=== PATIENT | male | born 1960 | race Caucasian/White ===

== ENCOUNTER 2020-01-04 00:21 | Observation (INO) | payer OTHER ==
[~2020-01-04] VITALS: Ht 172.7 cm; Wt 117.9 kg
[2020-01-04 00:35] VITALS: BP 145/94
[2020-01-04 00:55] LABS: HEMATOCRIT 42.2 % (42.0-52.0); MPV 6.9 fl. (7.2-11.1); NUCLEATED RBCS 0 /100WBC; RDW-CV 13.5 % (10.5-14.5)
[2020-01-04 00:57] LABS: ABSOLUTE BASOPHILS 0.1 thou/uL (0.0-0.2); ABSOLUTE LYMPHOCYTES 2.1 thou/uL (0.8-5.3); ABSOLUTE MONOCYTES 1.2 thou/uL (0.0-1.2); ABSOLUTE NEUTROPHILS 8.2 thou/uL (1.6-8.1); BASOPHILS 0.5 %; EOSINOPHILS 0.4 %; HEMOGLOBIN 14.4 gm/dL (14.0-18.0); MCH 30.1 pg (26.0-34.0); MCHC 34.2 g/dL (28.0-37.0); MCV 88.1 fL (80.0-100.0); MONOCYTES 10.3 %; PLATELET COUNT* 356 thou/uL (150-400); POLYS 70.8 %; RBC 4.79 mil/uL (4.50-6.00); WBC 11.6 thou/uL (4.0-11.0)
[2020-01-04 01:04] LABS: CALCIUM 9.7 mg/dL (8.5-10.1); CREATININE 1.3 mg/dL (0.6-1.3); POTASSIUM 4.1 mmol/L (3.5-5.1)
[2020-01-04 01:09] LABS: ALBUMIN 4.5 g/dL (3.4-5.0); TOTAL BILIRUBIN 0.7 mg/dL (<0.1-1.0); TOTAL PROTEIN 8.1 g/dL (6.4-8.2)
[2020-01-04 04:30] VITALS: BP 142/87
[2020-01-04 04:35] VITALS: BP 122/77
[2020-01-04 07:20] VITALS: BP 123/76
[2020-01-04 10:28] LABS: CREATININE 1.2 mg/dL (0.6-1.3); MAGNESIUM 2.2 mg/dL (1.8-2.4); POTASSIUM 4.1 mmol/L (3.5-5.1)
--- NOTE | 2020-01-04 10:55 | EKG ---
[place] [address] ELECTROCARDIOGRAM REPORT Name: LORENA GARCIA Room: [address] ADM IN 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 : 1960 Requested By: Wolf Menezes Order Number: [id number] MD: Osito Quiroz Measurements Intervals [place] Rate: 87 P: 56 OK: 118 QRS: -27 QRSD: 140 T: 9 QT: 399 QTc: 480 Interpretive Statements Sinus rhythm Borderline short OK interval Right bundle branch block No previous ECG available for comparison Electronically Signed On 01-04-2020 10:54:50 CDT by Osito Quiroz [email or web address] <ELECTRONICALLY SIGNED> By: Osito Quiroz MD, [facility] 01/04/20 1054 0049 0049 Osito Quiroz MD, [facility] /EPI
[2020-01-04 15:45] VITALS: BP 129/83
[2020-01-04 20:00] VITALS: BP 140/88
[2020-01-05 05:21] LABS: MCH 30.5 pg (26.0-34.0); MCHC 34.1 g/dL (28.0-37.0); MCV 89.4 fL (80.0-100.0); MPV 7.3 fl. (7.2-11.1); RBC 4.25 mil/uL (4.50-6.00); RDW-CV 13.8 % (10.5-14.5); WBC 6.8 thou/uL (4.0-11.0)
[2020-01-05 05:48] LABS: CALCIUM 7.6 mg/dL (8.5-10.1); CREATININE 1.2 mg/dL (0.6-1.3); MAGNESIUM 2.3 mg/dL (1.8-2.4); POTASSIUM 3.9 mmol/L (3.5-5.1)
[2020-01-05 08:19] VITALS: BP 124/81
[2020-01-05 09:33] VITALS: BP 124/81
[2020-01-05 15:44] VITALS: BP 113/80
== END 2020-01-05 18:10 | disposition home or self-care (01) ==
LOC: EDBD 00:21 → M.ERS 00:21 → M.ORTHSURG 03:34 → M.TBA-ER 03:34 → M.ORTHSURG 03:34
PROVIDERS: Family Medicine; Internal Medicine; ADMIT Internal Medicine; ATTEND Internal Medicine
DX: K56.609 Unspecified intestinal obstruction, unspecified as to partial versus complete obstruction (principal); K40.20 Bilateral inguinal hernia, without obstruction or gangrene, not specified as recurrent; K42.9 Umbilical hernia without obstruction or gangrene; M19.90 Unspecified osteoarthritis, unspecified site; R65.10 Systemic inflammatory response syndrome (SIRS) of non-infectious origin without acute organ dysfunction; E66.9 Obesity, unspecified; D72.829 Elevated white blood cell count, unspecified; Z68.39 Body mass index [BMI] 39.0-39.9, adult; Z79.899 Other long term (current) drug therapy; Z20.828 Contact with and (suspected) exposure to other viral communicable diseases

== ENCOUNTER → 2020-02-04 | Day surgery (SDC) | payer OTHER ==
[~2020-02-04] MED LIST: ADVIL200 M3 PO; ROXICODONE5 MG PO; TYLENOL325 M1 PO
--- NOTE | 2020-02-08 17:06 | PATH ---
[facility] [address] [place] [address] PATHOLOGY RPT PROCEDURE Name: LORENA GARCIA Room: [facility].#: [id number] Admission: 02/04/20 Date of : 64 Discharge: Report #: [id number] Path Case #: [id number] [facility] Accession Number: [id number] . 01 Material submitted: . hernia - UMBILICAL HERNIA SAC . 01 Clinical history: . BILATERAL INGUINAL HERNIA . 02 Diagnosis: Umbilical hernia sac: - Benign mesothilial-lined fibromembranous/fibrofatty tissue with mild fibrosis and chronic inflammation. (JERONIMO:jana; 02/08/2020) QMS 02/08/2020 1304 Local . 02 Electronically signed: . Miguel Bright MD, Pathologist NPI- [id number] . 01 Gross description: . The specimen is received in formalin, labeled "Lorena Garcia, umbilical hernia sac" and consists of 4 segments of membranous pink-shaffer tissue and yellow lobulated tissue measuring 10.0 x 7.8 x 3.4 cm in aggregate. Sectioning reveals focal congestion and no gross lesions. Bronc Buster sections are submitted in A1. (SDY; 02/07/2020) SYU/SYU 02/07/2020 1328 Local . 02 Pathologist provided ICD-10: K40.90 . 02 CPT . 317916 Specimen Comment: A courtesy copy of this report has been sent to [phone] Specimen Comment: Report sent to Performed at: [address], [place], [place] [id number] MD Jose E Werner MD Phone: [phone] Performed at: [facility] [address], [place], [place] [id number] MD Mgiuel Bright MD Phone: [phone]
--- NOTE | 2020-02-11 10:32 | OP ---
[address] [address] OPERATIVE REPORT Name: LORENA Aleman Room: [facility]#: [id number] Admission: 02/04/20 Attend Phys: Son Hair DO Discharge: Date of : 64 Report #: [id number] THIS REPORT FOR: //name// cc: TYLER Gregory No family physician/PCP TYLER - No family physician/PCP ~ CC: Son Hair FAM physician/PCP DATE OF SERVICE: 02/04/2020 REFERRING PHYSICIAN: None. PREOPERATIVE DIAGNOSIS: Bilateral inguinal hernias and incarcerated umbilical hernia and morbid obesity.. POSTOPERATIVE DIAGNOSIS: Bilateral inguinal hernias and incarcerated umbilical hernia and morbid obesity. PROCEDURE: Da Jay robotic-assisted laparoscopic bilateral inguinal hernia repair with ProGrip mesh and open umbilical hernia repair with 6.4 cm Ventralex mesh. SURGEON: Son Hair DO [employer]HALT ROLLER OPERATOR: Dr. Aristeo Costa. ANESTHESIA: General endotracheal. ESTIMATED BLOOD LOSS: 30 mL. COMPLICATIONS: None. DESCRIPTION OF PROCEDURE: After obtaining proper consents and discussing risks and complications with the patient, he was taken to the operating room, laid in the supine position, administered general endotracheal anesthetic. He was then prepped and draped in the usual sterile fashion. A timeout was performed. We confirmed the appropriate patient and procedure. Preoperative antibiotics had been given. SCDs were in place. We then made a horizontal supraumbilical skin incision. This was carried down through the skin into the subcutaneous tissue using electrocautery for hemostasis. Once within the subcutaneous tissue, we immediately identified a fairly large incarcerated umbilical hernia sac. The sac was completely dissected free and detached from the umbilical stalk. We then dissected all the way down to the fascial defect. The hernia sac was opened and we excised part of the incarcerated omentum and then everted the remainder of that back into the peritoneal cavity. At this point, we then closed the fascial defect with interrupted 0 Prolene sutures in order to perform [facility] [address] [place] [address] OPERATIVE REPORT Name: HERRLORENA Ash Room: [facility].#: [id number] Admission: 02/04/20 Attend Phys: Son Hair DO Discharge: Date of : 64 Report #: [id number] our robotic surgery and we had to place the robotic camera port through this defect so we closed that down around. The camera port we then started insufflation. Once insufflation was complete, full visual inspection of the anterior abdominal organs was performed. This revealed a large amount of intra-abdominal fat as well as preperitoneal fat and we did have a difficult time identifying the inguinal hernias at this point, but we elected to proceed with placement of our two other robotic ports and then we docked the [employer]bet[employer] robot. Once the robot was docked, I inserted a monopolar scissors on the right side and a bipolar fenestrated grasper on the left. I then broke scrub and went on console. Once on console, I was able to move some of the fat out of the way and we identified both the right and left indirect inguinal hernias. We had placed the patient in fairly steep Trendelenburg prior to this as well before docking the robot. I then identified the ASIS on the right and left side. We began on the right side, opening the peritoneum from the median umbilical ligament laterally to the ASIS. I then used blunt dissection to open the preperitoneal space starting medially and going all the way down to the pubic ramus. This was again quite difficult because of the large amount of preperitoneal fat that the patient had as well as intraperitoneal fat was kept on pushing down into our flap. I was, however, finally able to dissect the space out and reduced the indirect inguinal hernia from the cord and cord structures. We then selected a 10 x 15 cm anatomic ProGrip mesh, which was then inserted and opened in its entirety. I then closed the peritoneal flap using a running 2-0 absorbable V-Loc suture. We then turned our attention to the left side where again the peritoneum was opened from the median umbilical ligament laterally to the ASIS. I bluntly dissected the preperitoneal space all the way down below the pubic ramus and then continued laterally and dissected the indirect inguinal hernia sac from the spermatic cord. We actually did identify two cord lipomas, one on the right and left and these were also both excised using electrocautery. The flap on the left side was then developed all the way out to the ASIS to allow for placement of another 10 x 15 cm ProGrip mesh. The mesh was inserted. The peritoneal flap was closed using a 2-0 absorbable V-Loc suture. There was a small hole in the peritoneum, which was repaired with a 2-0 Vicryl suture. I then removed the 2 cord lipomas by putting them into an Endopouch. The insufflation was then stopped. All air was released, the trocars were removed. We then repaired the umbilical hernia defect using a 6.[address] mesh. This mesh was sutured in place to the fascia incorporating the mesh into the closure of the fascia as well. We then reattached the umbilicus using a 3-0 Vicryl suture. The subcutaneous tissues were then closed using 3-0 Vicryl suture. Skin incisions were all closed using 4-0 Monocryl and Dermabond. The patient was awakened in the operating room and transported to recovery room in stable condition. <ELECTRONICALLY SIGNED> By: Son Hair DO 02/11/20 1032 1253 1325Atawanna Hair DO /nt
== END | disposition home or self-care (01) ==
LOC: M.SUR 07:20
PROVIDERS: ATTEND Surgery
DX: K40.20 Bilateral inguinal hernia, without obstruction or gangrene, not specified as recurrent (principal); K42.0 Umbilical hernia with obstruction, without gangrene; E66.01 Morbid (severe) obesity due to excess calories; Z88.2 Allergy status to sulfonamides; Z79.899 Other long term (current) drug therapy; Z98.890 Other specified postprocedural states; Z20.828 Contact with and (suspected) exposure to other viral communicable diseases

== ENCOUNTER → 2020-05-02 | Outpatient (CLI) | payer OTHER | LOC: M.RAD 14:06 | PROVIDERS: ATTEND Internal Medicine Critical Care Medicine | DX: I51.7 Cardiomegaly (principal); J98.4 Other disorders of lung; Z87.891 Personal history of nicotine dependence ==

== ENCOUNTER 2020-08-29 13:28 | Emergency (ER) | payer OTHER ==
[~2020-08-29] VITALS: Ht 172.7 cm; Wt 113.4 kg
[2020-08-29 14:04] LABS: HEMATOCRIT 52.7 % (42.0-52.0); HEMOGLOBIN 17.6 gm/dL (14.0-18.0); MCHC 33.4 g/dL (28.0-37.0); MCV 86.8 fL (80.0-100.0); NUCLEATED RBCS 0 /100WBC; PLATELET COUNT* 126 thou/uL (150-400); RBC 6.08 mil/uL (4.50-6.00); RDW-CV 14.1 % (10.5-14.5); WBC 2.7 thou/uL (4.0-11.0)
[2020-08-29 14:15] LABS: CALCIUM 8.4 mg/dL (8.5-10.1); CREATININE 1.3 mg/dL (0.6-1.3); POTASSIUM 3.9 mmol/L (3.5-5.1)
[2020-08-29 14:22] LABS: APTT 28.5 Seconds (25.0-31.3); PROTIME 10.3 Seconds (9.20-11.50)
[2020-08-29 14:25] LABS: ALBUMIN 3.4 g/dL (3.4-5.0); TOTAL BILIRUBIN 0.3 mg/dL (<0.1-1.0); TOTAL PROTEIN 7.4 g/dL (6.4-8.2)
[2020-08-29 14:31] LABS: ABSOLUTE LYMPHOCYTES 0.1 thou/uL (0.8-5.3); ABSOLUTE MONOCYTES 0.1 thou/uL (0.0-1.2); ABSOLUTE NEUTROPHILS 2.6 thou/uL (1.6-8.1); PLATELET ESTIMATE ADEQUATE
[2020-08-29] MEDS ORDERED: VENTOLIN HFA 1818 GM INH (16:00)
[2020-08-29] MEDS ORDERED: ZPAK PO (16:00)
[2020-08-29] MEDS ORDERED: ZOFRAN ODT4 MG PO (16:00)
[2020-08-29] MEDS ORDERED: TESSALON PERLE100 MG PO (16:00)
[2020-08-29] MEDS ORDERED: MEDROLDOSEPACK PO (16:00)
[2020-08-29 16:12] VITALS: BP 121/65
--- NOTE | 2020-08-29 16:13 | EKG ---
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: [facility] : 1960 Requested By: Jeanne Mcgovern Order Number: [id number] MD: Manny Polanco Measurements Intervals [place] Rate: 98 P: 54 AK: 115 QRS: -164 QRSD: 127 T: 27 QT: 338 QTc: 432 Interpretive Statements Sinus rhythm Borderline short AK interval Right bundle branch block Baseline wander in lead(s) II,III,aVL,aVF,V2 Compared to ECG 01/04/2020 00:49:57 No significant changes Electronically Signed On 08-29-2020 16:13:45 CDT by Manny Polanco [email or web address] <ELECTRONICALLY SIGNED> By: Manny Polanco MD, FAC 08/29/20 1613 1346 1346 Manny Polanco MD, FAC /EPI
== END 2020-08-29 16:13 | disposition home or self-care (01) ==
LOC: M.ERS 13:28
PROVIDERS: Nurse Practitioner Family
DX: U07.1 COVID-19 (principal); R11.0 Nausea; E66.9 Obesity, unspecified; Z88.2 Allergy status to sulfonamides; Z68.38 Body mass index [BMI] 38.0-38.9, adult